=== PATIENT | female | born 1955 | race Two or more races ===

== ENCOUNTER 2021-05-06 05:45 | Day surgery (SDC) | payer OTHER ==
[2021-06-05] MEDS ORDERED: TOPROL XL25 M1 PO (13:24)
[2021-06-05] MEDS ORDERED: AVAPRO300 MG PO (13:24)
[2021-06-05] MEDS ORDERED: NORVASC5 MG PO (13:24)
[2021-06-05] MEDS ORDERED: CHILDREN'S ASPI81 MG PO (13:24)
== END 2021-05-06 11:50 | disposition home or self-care (01) ==
LOC: AMB-ENDOS 05:45
PROVIDERS: ATTEND Surgery
DX: D12.8 Benign neoplasm of rectum (principal); K64.8 Other hemorrhoids; Z20.822 Contact with and (suspected) exposure to COVID-19

== ENCOUNTER 2021-06-12 05:00 | Day surgery (SDC) | payer OTHER ==
[~2021-06-12 05:00] MED LIST: AVAPRO300 MG PO; CHILDREN'S ASPI81 MG PO; NORVASC5 MG PO; TOPROL XL25 M1 PO
[2021-06-12] MEDS ORDERED: ULTRAM50 MG PO (12:11)
== END 2021-06-12 12:45 | disposition home or self-care (01) ==
LOC: CIR.AMB 05:00
PROVIDERS: ATTEND Surgery
DX: C19 Malignant neoplasm of rectosigmoid junction (principal); Z20.822 Contact with and (suspected) exposure to COVID-19
CPT/HCPCS: 36561; C1751